=== PATIENT | female | born 1985 | race Caucasian/White ===

== ENCOUNTER 2017-12-10 07:17 | Emergency (ER) | payer MEDICAID ==
[~2017-12-10] VITALS: Ht 167.6 cm; Wt 95.3 kg
[2017-12-10 08:42] LABS: BASOPHILS % 0.4 % (0.0-2.0); EOSINOPHILS % 0.2 % (0.0-5.0); HEMATOCRIT. 37.6 % (36.0-48.0); HEMOGLOBIN. 12.5 g/dL (12.0-16.0); LYMPHOCYTES % 22.8 % (20.0-50.0); MEAN CORPUSCULAR HEMOGLOBIN 29.8 pg (28.0-32.0); MEAN CORPUSCULAR VOLUME 89.3 fL (81.0-99.0); MEAN PLATELET VOLUME 8.4 fl (7.4-10.4); MONOCYTES % 7.1 % (2.0-8.0); NEUTROPHILS % 69.5 % (40.0-76.0); PLATELET 249 x1000/uL (130-400); RED BLOOD CELL COUNT 4.21 mill/uL (4.2-5.4); RED CELL DISTRIBUTION WIDTH 15.1 % (11.6-14.6)
[2017-12-10 08:51] LABS: CHLORIDE 108 mEq/L (98-107)
[2017-12-10 08:53] LABS: ETHANOL BLOOD < 10 mg/dL
[2017-12-10 08:56] LABS: CLARITY URINE CLOUDY (CLEAR); COLOR URINE YELLOW (YELLOW); KETONES URINE 1+ (NEGATIVE); LEUKOCYTE ESTERASE URINE TRACE (NEGATIVE); NITRITE URINE NEGATIVE (NEGATIVE); OCCULT BLOOD URINE NEGATIVE (NEGATIVE); PROTEIN URINE TRACE (NEGATIVE); SPECIFIC GRAVITY URINE 1.031 (1.005-1.030)
[2017-12-10 09:08] LABS: *BARBITURATES SCREEN URINE NEGATIVE (NEGATIVE); *BENZODIAZEPINES SCREEN URINE NEGATIVE (NEGATIVE); *COCAINE SCREEN URINE NEGATIVE (NEGATIVE); METHADONE URINE SCREEN NEGATIVE (NEGATIVE); OPIATES URINE SCREEN NEGATIVE (NEGATIVE)
[2017-12-10 09:09] LABS: *AMPHETAMINES SCREEN URINE PRESUMTIVE POSITIVE (NEGATIVE); CANNABINOID URINE SCREEN NEGATIVE (NEGATIVE); PHENCYCLIDINE URINE SCREEN NEGATIVE (NEGATIVE)
[2017-12-10] MEDS ORDERED: OLANZAPINE 10MG TABLET PO SCH (15:15)
[2017-12-11] MEDS ORDERED: POTASSIUM CHLORIDE 20MEQ TABLET SR PO ONE (07:30)
[2017-12-11 11:04] VITALS: BP 110/60
== END 2017-12-11 11:05 | disposition home or self-care (01) ==
LOC: ER 07:17
DX: R44.0 Auditory hallucinations (principal); F32.9 Major depressive disorder, single episode, unspecified; R45.851 Suicidal ideations
CPT/HCPCS: 36415; 80048; 80305; 80307; 80329; 81003; 81025; 85025; 99284; G0482; J7030; Z7610

== ENCOUNTER 2019-10-21 15:58 | Emergency (ER) | payer MEDICAID ==
[~2019-10-21] VITALS: Ht 167.6 cm; Wt 79.0 kg
[2019-10-21] MEDS ORDERED: SODIUM CHLORIDE 0.9% 1,000 ML IV ONE (16:53)
[2019-10-21 17:04] LABS: CLARITY URINE CLEAR (CLEAR); COLOR URINE YELLOW (YELLOW); KETONES URINE NEGATIVE (NEGATIVE); LEUKOCYTE ESTERASE URINE TRACE (NEGATIVE); NITRITE URINE NEGATIVE (NEGATIVE); OCCULT BLOOD URINE NEGATIVE (NEGATIVE); PH URINE 6.5 (4.5-8.0); PROTEIN URINE NEGATIVE (NEGATIVE); SPECIFIC GRAVITY URINE 1.004 (1.005-1.030); UROBILINOGEN URINE 0.2 E.U./dL (0.2-1.0)
[2019-10-21 17:07] LABS: BASOPHILS % 0.3 % (0.0-2.0); EOSINOPHILS % 0.9 % (0.0-5.0); HEMATOCRIT. 40.5 % (36.0-48.0); HEMOGLOBIN. 13.8 g/dL (12.0-16.0); LYMPHOCYTES % 33.7 % (20.0-50.0); MEAN CORPUSCULAR VOLUME 90.9 fL (81.0-99.0); MONOCYTES % 7.2 % (2.0-8.0); NEUTROPHILS % 57.9 % (40.0-76.0); PLATELET 217 x1000/uL (130-400); RED BLOOD CELL COUNT 4.46 mill/uL (4.2-5.4); RED CELL DISTRIBUTION WIDTH 14.2 % (11.6-14.6)
[2019-10-21 17:08] LABS: CHLORIDE 103 mEq/L (98-107)
[2019-10-21 17:12] LABS: PARTIAL THROMBOPLASTIN TIME 26.4 sec (23.4-31.0); PROTHROMBIN TIME 10.1 sec (9.6-11.0)
[2019-10-21 19:12] VITALS: BP 110/52
== END 2019-10-21 19:19 | disposition home or self-care (01) ==
LOC: ER 15:58
DX: R55 Syncope and collapse (principal); R42 Dizziness and giddiness
CPT/HCPCS: 36415; 71045; 80053; 81003; 81025; 85025; 85610; 85730; 93005; 96360; 96361; 99285; J7030

== ENCOUNTER 2019-12-27 17:04 | Emergency (ER) | payer MEDICAID ==
[~2019-12-27] VITALS: Ht 165.1 cm; Wt 60.0 kg
[2019-12-27 17:21] VITALS: BP 131/80
[2019-12-27 19:39] LABS: BASOPHILS % 0.6 % (0.0-2.0); HEMATOCRIT. 38.3 % (36.0-48.0); HEMOGLOBIN. 12.9 g/dL (12.0-16.0); MEAN CORPUSCULAR VOLUME 91.9 fL (81.0-99.0); MEAN PLATELET VOLUME 9.3 fl (7.4-10.4); MONOCYTES % 4.7 % (2.0-8.0); NEUTROPHILS % 57.7 % (40.0-76.0); PLATELET 195 x1000/uL (130-400); RED BLOOD CELL COUNT 4.16 mill/uL (4.2-5.4); RED CELL DISTRIBUTION WIDTH 14.1 % (11.6-14.6)
[2019-12-27 19:51] LABS: PROTHROMBIN TIME 10.4 sec (9.6-11.0)
[2019-12-27 19:54] LABS: CHLORIDE 110 mEq/L (98-107)
== END 2019-12-27 21:35 | disposition home or self-care (01) ==
LOC: ER 17:04
DX: R55 Syncope and collapse (principal); Z98.890 Other specified postprocedural states
CPT/HCPCS: 36415; 71045; 80053; 84484; 85025; 93005; 99285

== ENCOUNTER 2021-02-27 01:43 | Emergency (ER) | payer MEDICAID ==
[~2021-02-27] VITALS: Ht 162.6 cm; Wt 91.0 kg
[2021-02-27 04:09] VITALS: BP 115/84
== END 2021-02-27 05:22 | disposition home or self-care (01) ==
LOC: ER 02:18
DX: R20.0 Anesthesia of skin (principal); R20.2 Paresthesia of skin; R07.9 Chest pain, unspecified; F17.210 Nicotine dependence, cigarettes, uncomplicated
CPT/HCPCS: 82962; 99283

== ENCOUNTER 2021-08-01 20:25 | Emergency (ER) | payer MEDICAID, OTHER ==
[~2021-08-01] VITALS: Ht 167.6 cm; Wt 68.0 kg
[2021-08-01] MEDS ORDERED: HALOPERIDOL LACTATE 5MG/ML VIAL IM ONE (21:15)
[2021-08-01] MEDS ORDERED: LORAZEPAM 2MG/ML CPJ IM ONE (21:15)
[2021-08-01 22:00] LABS: BASOPHILS % 0.3 % (0.0-2.0); EOSINOPHILS % 0.5 % (0.0-5.0); HEMOGLOBIN. 12.6 g/dL (12.0-16.0); LYMPHOCYTES % 22.3 % (20.0-50.0); MEAN CORPUSCULAR HEMOGLOBIN 30.3 pg (28.0-32.0); MEAN CORPUSCULAR VOLUME 89.3 fL (81.0-99.0); MEAN PLATELET VOLUME 8.7 fl (7.4-10.4); NEUTROPHILS % 67.9 % (40.0-76.0); PLATELET 215 x1000/uL (130-400); RED BLOOD CELL COUNT 4.14 mill/uL (4.2-5.4); RED CELL DISTRIBUTION WIDTH 13.8 % (11.6-14.6)
[2021-08-01 22:09] LABS: HCG SCREEN NEGATIVE
[2021-08-01 22:11] LABS: CHLORIDE 108 mEq/L (98-107)
[2021-08-01 22:15] LABS: ETHANOL BLOOD < 10 mg/dL
[2021-08-01 22:59] LABS: CLARITY URINE CLOUDY (CLEAR); COLOR URINE DARK YELLOW (YELLOW); KETONES URINE TRACE (NEGATIVE); LEUKOCYTE ESTERASE URINE NEGATIVE (NEGATIVE); NITRITE URINE NEGATIVE (NEGATIVE); OCCULT BLOOD URINE NEGATIVE (NEGATIVE); PROTEIN URINE 1+ (NEGATIVE); SPECIFIC GRAVITY URINE 1.038 (1.005-1.030); UROBILINOGEN URINE 0.2 E.U./dL (0.2-1.0)
[2021-08-01 23:20] LABS: *BARBITURATES SCREEN URINE NEGATIVE (NEGATIVE); *COCAINE SCREEN URINE NEGATIVE (NEGATIVE); METHADONE URINE SCREEN NEGATIVE (NEGATIVE); OPIATES URINE SCREEN NEGATIVE (NEGATIVE)
[2021-08-01 23:26] LABS: CANNABINOID URINE SCREEN NEGATIVE (NEGATIVE); PHENCYCLIDINE URINE SCREEN NEGATIVE (NEGATIVE)
[2021-08-01 23:36] LABS: *AMPHETAMINES SCREEN URINE PRESUMTIVE POSITIVE (NEGATIVE); *BENZODIAZEPINES SCREEN URINE PRESUMTIVE POSITIVE (NEGATIVE)
[2021-08-02 05:00] VITALS: BP 146/70
== END 2021-08-02 05:45 | disposition home or self-care (01) ==
LOC: ER 20:25
DX: F29 Unspecified psychosis not due to a substance or known physiological condition (principal); R45.1 Restlessness and agitation; R41.82 Altered mental status, unspecified; F15.10 Other stimulant abuse, uncomplicated
CPT/HCPCS: 36415; 80053; 80305; 80307; 80320; 80329; 81003; 84703; 85025; 96372; 99291; J1630; J2060; Z7610; G0480

== ENCOUNTER 2021-10-22 08:37 | Emergency (ER) | payer OTHER, MEDICAID ==
[~2021-10-22] VITALS: Ht 162.6 cm; Wt 114.0 kg
[2021-10-22 08:45] VITALS: BP 120/74
[2021-10-22] MEDS ORDERED: OLAN10TA3 MT (09:10)
== END 2021-10-22 09:19 | disposition home or self-care (01) ==
LOC: ER 08:37
DX: Z76.0 Encounter for issue of repeat prescription (principal); Z86.59 Personal history of other mental and behavioral disorders
CPT/HCPCS: 81025; 99282; 99283

== ENCOUNTER 2022-01-25 06:02 | Emergency (ER) | payer MEDICAID, OTHER ==
[~2022-01-25] VITALS: Ht 165.1 cm; Wt 82.0 kg
[~2022-01-25 06:02] MED LIST: OLAN10TA3 MT
[2022-01-25 07:54] VITALS: BP 131/78
== END 2022-01-25 07:57 | disposition left against medical advice (07) ==
LOC: ER 06:02
DX: F15.20 Other stimulant dependence, uncomplicated (principal); F20.9 Schizophrenia, unspecified
CPT/HCPCS: 99283

== ENCOUNTER 2022-06-23 16:11 | Emergency (ER) | payer MEDICAID, OTHER ==
[~2022-06-23] VITALS: Ht 162.6 cm; Wt 95.0 kg
[2022-06-23 17:20] LABS: BASOPHILS % 0.5 % (0.0-2.0); EOSINOPHILS % 0.3 % (0.0-5.0); HEMOGLOBIN. 12.3 g/dL (12.0-16.0); LYMPHOCYTES % 25.9 % (20.0-50.0); MEAN CORPUSCULAR HEMOGLOBIN 28.8 pg (28.0-32.0); MEAN CORPUSCULAR VOLUME 86.3 fL (81.0-99.0); MEAN PLATELET VOLUME 9.4 fl (7.4-10.4); MONOCYTES % 9.4 % (2.0-8.0); NEUTROPHILS % 63.9 % (40.0-76.0); PLATELET 210 x1000/uL (130-400); RED BLOOD CELL COUNT 4.29 mill/uL (4.2-5.4); RED CELL DISTRIBUTION WIDTH 14.5 % (11.6-14.6)
[2022-06-23 17:31] LABS: CHLORIDE 108 mEq/L (98-107)
[2022-06-23 17:40] LABS: ETHANOL BLOOD < 10 mg/dL
[2022-06-23 18:43] LABS: HCG SCREEN NEGATIVE
[2022-06-23 23:17] VITALS: BP 123/84
== END 2022-06-23 23:18 | disposition home or self-care (01) ==
LOC: ER 16:11
DX: T43.621A Poisoning by amphetamines, accidental (unintentional), initial encounter (principal); G92.8 Other toxic encephalopathy; F23 Brief psychotic disorder; Y92.018 Other place in single-family (private) house as the place of occurrence of the external cause
CPT/HCPCS: 36415; 80048; 80307; 80320; 80329; 84703; 85025; 99283; G0480

== ENCOUNTER 2022-07-02 23:24 | Emergency (ER) | payer OTHER ==
[~2022-07-02] VITALS: Ht 167.6 cm; Wt 90.0 kg
[2022-07-03] MEDS ORDERED: SODIUM CHLORIDE 0.9% 1,000 ML IV ONE (00:15)
[2022-07-03] MEDS ORDERED: LORAZEPAM 0.5MG TABLET PO ONE (01:00)
[2022-07-03 01:41] LABS: BASOPHILS % 0.3 % (0.0-2.0); EOSINOPHILS % 0.1 % (0.0-5.0); HEMATOCRIT. 34.8 % (36.0-48.0); HEMOGLOBIN. 11.7 g/dL (12.0-16.0); LYMPHOCYTES % 16.6 % (20.0-50.0); MEAN CORPUSCULAR HEMOGLOBIN 29.1 pg (28.0-32.0); MEAN CORPUSCULAR VOLUME 86.8 fL (81.0-99.0); MEAN PLATELET VOLUME 9.2 fl (7.4-10.4); MONOCYTES % 7.3 % (2.0-8.0); NEUTROPHILS % 75.7 % (40.0-76.0); PLATELET 215 x1000/uL (130-400); RED CELL DISTRIBUTION WIDTH 15.3 % (11.6-14.6)
[2022-07-03 01:45] LABS: CLARITY URINE CLOUDY (CLEAR); COLOR URINE YELLOW (YELLOW); KETONES URINE 1+ (NEGATIVE); LEUKOCYTE ESTERASE URINE 2+ (NEGATIVE); NITRITE URINE NEGATIVE (NEGATIVE); OCCULT BLOOD URINE NEGATIVE (NEGATIVE); PH URINE 5.5 (4.5-8.0); PROTEIN URINE 1+ (NEGATIVE)
[2022-07-03 01:55] LABS: CHLORIDE 109 mEq/L (98-107)
[2022-07-03 02:04] LABS: ETHANOL BLOOD < 10 mg/dL
[2022-07-03 02:06] LABS: *BARBITURATES SCREEN URINE NEGATIVE (NEGATIVE); *COCAINE SCREEN URINE NEGATIVE (NEGATIVE); CANNABINOID URINE SCREEN NEGATIVE (NEGATIVE); METHADONE URINE SCREEN NEGATIVE (NEGATIVE); OPIATES URINE SCREEN NEGATIVE (NEGATIVE); PHENCYCLIDINE URINE SCREEN NEGATIVE (NEGATIVE)
[2022-07-03 02:14] LABS: *AMPHETAMINES SCREEN URINE PRESUMTIVE POSITIVE (NEGATIVE); *BENZODIAZEPINES SCREEN URINE PRESUMTIVE POSITIVE (NEGATIVE)
[2022-07-03 05:34] VITALS: BP 120/70
== END 2022-07-03 07:27 | disposition home or self-care (01) ==
LOC: ER 23:24
DX: F19.10 Other psychoactive substance abuse, uncomplicated (principal); F41.9 Anxiety disorder, unspecified; F20.9 Schizophrenia, unspecified
CPT/HCPCS: 36415; 80053; 80305; 80307; 80320; 80329; 81003; 81025; 85025; 96360; 96361; 99283; J7030; G0480

== ENCOUNTER 2022-07-03 14:29 | Emergency (ER) | payer OTHER ==
[~2022-07-03] VITALS: Ht 162.6 cm; Wt 100.0 kg
[2022-07-03 14:31] VITALS: BP 138/75
[2022-07-03 15:20] LABS: BASOPHILS % 0.3 % (0.0-2.0); EOSINOPHILS % 0.2 % (0.0-5.0); HEMOGLOBIN. 10.7 g/dL (12.0-16.0); LYMPHOCYTES % 25.3 % (20.0-50.0); MEAN CORPUSCULAR HEMOGLOBIN 28.7 pg (28.0-32.0); MEAN CORPUSCULAR VOLUME 85.9 fL (81.0-99.0); MEAN PLATELET VOLUME 8.9 fl (7.4-10.4); MONOCYTES % 7.5 % (2.0-8.0); NEUTROPHILS % 66.7 % (40.0-76.0); PLATELET 199 x1000/uL (130-400); RED BLOOD CELL COUNT 3.72 mill/uL (4.2-5.4); RED CELL DISTRIBUTION WIDTH 15.1 % (11.6-14.6)
[2022-07-03 15:31] LABS: HCG SCREEN NEGATIVE
[2022-07-03 15:32] LABS: CHLORIDE 110 mEq/L (98-107)
[2022-07-03 15:36] LABS: ETHANOL BLOOD < 10 mg/dL
== END 2022-07-03 19:19 | disposition home or self-care (01) ==
LOC: ER 14:29
DX: F15.10 Other stimulant abuse, uncomplicated (principal); E11.9 Type 2 diabetes mellitus without complications; F41.9 Anxiety disorder, unspecified; F20.9 Schizophrenia, unspecified
CPT/HCPCS: 36415; 80048; 80307; 80320; 80329; 84703; 85025; 99283; Z7610; G0480

== ENCOUNTER 2023-02-04 14:12 | Emergency (ER) | payer OTHER ==
[~2023-02-04] VITALS: Ht 162.6 cm; Wt 109.0 kg
[2023-02-04 14:32] VITALS: BP 106/68; PULSE 83; RESP 20; TEMP 98.1; O2SAT 99
[2023-02-04] MEDS ORDERED: OLAN10TA3 MT ×3 (15:47→16:45)
== END 2023-02-04 16:27 | disposition home or self-care (01) ==
LOC: ER 14:12
DX: R53.1 Weakness (principal); E11.9 Type 2 diabetes mellitus without complications; Z76.0 Encounter for issue of repeat prescription; F15.90 Other stimulant use, unspecified, uncomplicated
CPT/HCPCS: 99283

== ENCOUNTER 2023-02-18 16:34 | Emergency (ER) | payer OTHER ==
[~2023-02-18] VITALS: Ht 167.6 cm; Wt 75.0 kg
[2023-02-18 16:40] VITALS: O2SAT 98
[2023-02-18] MEDS ORDERED: HALOPERIDOL LACTATE 5MG/ML VIAL IM ONE (16:45)
[2023-02-18] MEDS ORDERED: DIPHENHYDRAMINE 50MG/ML VIAL IM PRN (16:45)
[2023-02-18] MEDS ORDERED: LORAZEPAM 2MG/ML CPJ IM PRN (16:45)
[2023-02-19 04:58] VITALS: BP 135/83; PULSE 79; RESP 20; TEMP 98
== END 2023-02-19 05:02 | disposition home or self-care (01) ==
LOC: ER 16:34
DX: F15.10 Other stimulant abuse, uncomplicated (principal); E11.9 Type 2 diabetes mellitus without complications
CPT/HCPCS: 99284; 96372; J1200; J1630; J2060

== ENCOUNTER 2023-02-20 20:32 | Emergency (ER) | payer OTHER ==
[~2023-02-20] VITALS: Ht 167.6 cm; Wt 99.0 kg
[2023-02-20 20:43] VITALS: BP 122/66; PULSE 98; RESP 16; TEMP 98.5; O2SAT 98
[2023-02-20 21:44] LABS: BASOPHILS % 0.2 % (0.0-2.0); EOSINOPHILS % 0.2 % (0.0-5.0); HEMATOCRIT. 35.6 % (36.0-48.0); HEMOGLOBIN. 11.8 g/dL (12.0-16.0); LYMPHOCYTES % 23.2 % (20.0-50.0); MEAN CORPUSCULAR HEMOGLOBIN 29.8 pg (28.0-32.0); MEAN CORPUSCULAR VOLUME 90.2 fL (81.0-99.0); MEAN PLATELET VOLUME 8.5 fl (7.4-10.4); NEUTROPHILS % 70.4 % (40.0-76.0); PLATELET 237 x1000/uL (130-400); RED BLOOD CELL COUNT 3.95 mill/uL (4.2-5.4); RED CELL DISTRIBUTION WIDTH 14.5 % (11.6-14.6); WHITE BLOOD COUNT 9.9 x1000/uL (4.5-11.0)
[2023-02-20 21:46] LABS: CHLORIDE 107 mEq/L (98-107); INDEX HEMOLYSI 1 (1-3); INDEX ICTERIC 1 (1-4); INDEX LIPEMIC 1 (1-3); POTASSIUM 3.5 mEq/L (3.5-5.1); SODIUM 139 mEq/L (136-145)
[2023-02-20 21:54] LABS: ALANINE AMINOTRANSFERASE 17 IU/L (13-61); ALBUMIN 3.4 g/dL (3.4-5.0); ASPARTATE AMINOTRANSFERASE 13 IU/L (15-37); BILIRUBIN TOTAL 0.3 mg/dL (0.1-1.0); CALCIUM 8.4 mg/dL (8.5-10.1); CARBON DIOXIDE 28 mEq/L (21-32); CREATININE 0.7 mg/dL (0.6-1.3); ETHANOL BLOOD < 10 mg/dL (<10); GLUCOSE 100 mg/dL (70-105); PROTEIN TOTAL 7.2 g/dL (6.0-8.3); UREA NITROGEN BLOOD 9 mg/dL (7-21)
== END 2023-02-20 23:00 | disposition home or self-care (01) ==
LOC: ER 20:32
DX: T43.621A Poisoning by amphetamines, accidental (unintentional), initial encounter (principal); F12.10 Cannabis abuse, uncomplicated; Y92.9 Unspecified place or not applicable
CPT/HCPCS: 36415; 80053; 80320; 85025; 99283; G0480

== ENCOUNTER 2023-02-25 12:14 | Emergency (ER) | payer OTHER ==
[~2023-02-25] VITALS: Ht 162.6 cm; Wt 91.0 kg
[2023-02-25 12:19] VITALS: O2SAT 98
[2023-02-25] MEDS ORDERED: LORAZEPAM 2MG/ML CPJ IM STA (12:20)
[2023-02-25 12:48] LABS: BASOPHILS % 0.5 % (0.0-2.0); EOSINOPHILS % 0.5 % (0.0-5.0); HEMATOCRIT. 36.8 % (36.0-48.0); HEMOGLOBIN. 12.2 g/dL (12.0-16.0); LYMPHOCYTES % 31.3 % (20.0-50.0); MEAN CORPUSCULAR HEMOGLOBIN 29.6 pg (28.0-32.0); MEAN CORPUSCULAR HGB CONC 33.1 g/dL (31.0-37.0); MEAN CORPUSCULAR VOLUME 89.3 fL (81.0-99.0); MEAN PLATELET VOLUME 8.5 fl (7.4-10.4); NEUTROPHILS % 58.7 % (40.0-76.0); PLATELET 241 x1000/uL (130-400); RED BLOOD CELL COUNT 4.12 mill/uL (4.2-5.4); RED CELL DISTRIBUTION WIDTH 14.6 % (11.6-14.6); WHITE BLOOD COUNT 7.9 x1000/uL (4.5-11.0)
[2023-02-25 13:04] LABS: CHLORIDE 104 mEq/L (98-107); INDEX HEMOLYSI 1 (1-3); INDEX ICTERIC 1 (1-4); INDEX LIPEMIC 1 (1-3); POTASSIUM 3.1 mEq/L (3.5-5.1); SODIUM 137 mEq/L (136-145)
[2023-02-25 13:09] LABS: HCG SCREEN NEGATIVE
[2023-02-25] MEDS ORDERED: HALOPERIDOL LACTATE 5MG/ML VIAL IM ONE (13:15)
[2023-02-25 13:21] LABS: ACETAMINOPHEN <2 ug/mL ug/mL (10-30); ALANINE AMINOTRANSFERASE 20 IU/L (13-61); ALBUMIN 3.9 g/dL (3.4-5.0); ASPARTATE AMINOTRANSFERASE 18 IU/L (15-37); BILIRUBIN TOTAL 0.5 mg/dL (0.1-1.0); CALCIUM 8.8 mg/dL (8.5-10.1); CARBON DIOXIDE 23 mEq/L (21-32); CREATINE KINASE 263 IU/L (26-192); CREATININE 1.1 mg/dL (0.6-1.3); ETHANOL BLOOD < 10 mg/dL (<10); GLUCOSE 86 mg/dL (70-105); PROTEIN TOTAL 8.1 g/dL (6.0-8.3); UREA NITROGEN BLOOD 16 mg/dL (7-21)
[2023-02-25] MEDS ORDERED: POTASSIUM CHLORIDE 20MEQ TABLET SR PO ONE (15:15)
[2023-02-25 15:37] LABS: CLARITY URINE CLOUDY (CLEAR); COLOR URINE DARK YELLOW (YELLOW); GLUCOSE URINE NEGATIVE (NEGATIVE); KETONES URINE 1+ (NEGATIVE); LEUKOCYTE ESTERASE URINE 2+ (NEGATIVE); NITRITE URINE NEGATIVE (NEGATIVE); OCCULT BLOOD URINE NEGATIVE (NEGATIVE); PH URINE 5.5 (4.5-8.0); PROTEIN URINE 1+ (NEGATIVE); SPECIFIC GRAVITY URINE 1.031 (1.005-1.030)
[2023-02-25 16:03] LABS: BACTERIA URINE 1+; RBC URINE 0-2 /hpf (0-2); SQUAMOUS EPITHELIAL CELL URINE 1+ /lpf (RARE/1+)
[2023-02-25 16:04] LABS: YEAST URINE 1+
[2023-02-25 17:03] LABS: *BARBITURATES SCREEN URINE NEGATIVE (NEGATIVE); *BENZODIAZEPINES SCREEN URINE NEGATIVE (NEGATIVE); *COCAINE SCREEN URINE NEGATIVE (NEGATIVE); CANNABINOID URINE SCREEN NEGATIVE (NEGATIVE); METHADONE URINE SCREEN NEGATIVE (NEGATIVE); OPIATES URINE SCREEN NEGATIVE (NEGATIVE); PHENCYCLIDINE URINE SCREEN NEGATIVE (NEGATIVE)
[2023-02-25 17:21] LABS: *AMPHETAMINES SCREEN URINE PRESUMTIVE POSITIVE (NEGATIVE); ECSTASY MDMA SCREEN URINE CONF.TEST INDICATED (NEGATIVE)
[2023-02-25] MEDS ORDERED: HALOPERIDOL LACTATE 5MG/ML VIAL IM NR (19:30)
[2023-02-25] MEDS ORDERED: FLUCONAZOLE 150MG TABLET PO ONE (19:45)
[2023-02-26 10:29] VITALS: BP 91/44; PULSE 83; RESP 14; TEMP 97.9
== END 2023-02-26 12:43 | disposition home or self-care (01) ==
LOC: ER 12:26
DX: R41.82 Altered mental status, unspecified (principal); B37.9 Candidiasis, unspecified; F12.90 Cannabis use, unspecified, uncomplicated; F15.90 Other stimulant use, unspecified, uncomplicated; R07.9 Chest pain, unspecified; Y33.XXXA Other specified events, undetermined intent, initial encounter; Y93.89 Activity, other specified; Y92.89 Other specified places as the place of occurrence of the external cause; Y99.8 Other external cause status; F10.90 Alcohol use, unspecified, uncomplicated; Y90.0 Blood alcohol level of less than 20 mg/100 ml
CPT/HCPCS: 80053; 80305; 81003; 80307; 80329; 80320; 82550; 84703; 84443; 85025; 36415; 70450; 70486; 93005; 96372; 99291; 87426; J1630; J2060; C9803; Z7610 ×6; G0480

== ENCOUNTER 2023-04-10 19:47 | Emergency (ER) | payer OTHER ==
[~2023-04-10] VITALS: Ht 162.6 cm; Wt 87.0 kg
[2023-04-10 19:49] VITALS: BP 146/80; PULSE 120; RESP 22; TEMP 98.8; O2SAT 97
== END 2023-04-10 23:00 | disposition left against medical advice (07) ==
LOC: ER 19:47
DX: Z53.21 Procedure and treatment not carried out due to patient leaving prior to being seen by health care provider (principal)
CPT/HCPCS: 99281

== ENCOUNTER 2023-06-09 21:05 | Emergency (ER) | payer OTHER ==
[~2023-06-09] VITALS: Ht 170.2 cm; Wt 73.0 kg
[2023-06-09 21:15] VITALS: BP 108/82; PULSE 91; RESP 18; TEMP 97.9; O2SAT 99
[2023-06-09] MEDS ORDERED: OLAN10TA72 MT (21:30)
== END 2023-06-09 21:56 | disposition home or self-care (01) ==
LOC: ER 21:14
DX: F20.9 Schizophrenia, unspecified (principal); Z59.00 Homelessness unspecified
CPT/HCPCS: 99283

== ENCOUNTER 2024-01-10 19:47 | Emergency (ER) | payer OTHER ==
[~2024-01-10] VITALS: Ht 162.6 cm; Wt 90.0 kg
[~2024-01-10 19:47] MED LIST changes: +OLAN10TA72 MT
[2024-01-10 19:54] VITALS: BP 118/88; PULSE 120; RESP 26; TEMP 98.4; O2SAT 99
[2024-01-10] MEDS: KETOROLAC 30MG/ML VIAL IM NR (20:15)
[2024-01-10] MEDS: LORAZEPAM 2MG/ML INJ IM NR (20:15)
[2024-01-10] MEDS ORDERED: LORAZEPAM 2MG/ML INJ IM ONE (20:15)
[2024-01-10] MEDS ORDERED: KETOROLAC 30MG/ML VIAL IM ONE (20:15)
[2024-01-10] MEDS: DIPHENHYDRAMINE 50MG/ML VIAL IM NR (20:15)
[2024-01-10] MEDS ORDERED: DIPHENHYDRAMINE 50MG/ML VIAL IM ONE (20:15)
[2024-01-10] MEDS: LORAZEPAM 1MG TABLET PO ONE (22:30)
[2024-01-10] MEDS: METOCLOPRAMIDE HCL 10MG TABLET PO ONE (22:48)
[2024-01-10] MEDS: DIPHENHYDRAMINE 25MG CAPSULE PO ONE (22:48)
[2024-01-10] MEDS: ACETAMINOPHEN 325MG TABLET PO ONE (22:48)
== END 2024-01-10 23:00 | disposition home or self-care (01) ==
LOC: ER 19:47
DX: F15.10 Other stimulant abuse, uncomplicated (principal); G43.909 Migraine, unspecified, not intractable, without status migrainosus; F20.9 Schizophrenia, unspecified
CPT/HCPCS: 99284; 70450; Q0163; J8597; J1200; J1885; J2060

== ENCOUNTER 2024-01-15 13:57 | Emergency (ER) | payer OTHER ==
[~2024-01-15] VITALS: Ht 165.1 cm; Wt 88.0 kg
[2024-01-15 14:03] VITALS: BP 109/60; PULSE 105; RESP 16; TEMP 98.5; O2SAT 98
== END 2024-01-15 15:16 ==
LOC: ER 13:57
DX: F15.10 Other stimulant abuse, uncomplicated (principal); Z86.59 Personal history of other mental and behavioral disorders
CPT/HCPCS: 99283

== ENCOUNTER 2024-08-10 22:46 | Emergency (ER) | payer OTHER ==
[~2024-08-10] VITALS: Ht 167.6 cm; Wt 100.0 kg
[2024-08-10 22:54] VITALS: O2SAT 99
[2024-08-10 23:29] LABS: BASOPHILS % 0.6 % (0.0-2.0); EOSINOPHILS % 0.2 % (0.0-5.0); HEMATOCRIT. 37.9 % (36.0-48.0); HEMOGLOBIN. 12.5 g/dL (12.0-16.0); LYMPHOCYTES % 17.7 % (20.0-50.0); MEAN CORPUSCULAR HEMOGLOBIN 30.2 pg (28.0-32.0); MEAN CORPUSCULAR VOLUME 91.6 fL (81.0-99.0); MEAN PLATELET VOLUME 8.2 fl (7.4-10.4); MONOCYTES % 7.5 % (2.0-8.0); PLATELET 286 x1000/uL (130-400); RED BLOOD CELL COUNT 4.14 mill/uL (4.2-5.4); RED CELL DISTRIBUTION WIDTH 14.7 % (11.6-14.6)
[2024-08-10 23:37] LABS: CHLORIDE 108 mEq/L (98-107); POTASSIUM 3.6 mEq/L (3.5-5.1); SODIUM 143 mEq/L (136-145)
[2024-08-10 23:38] LABS: CALCIUM 9.9 mg/dL (8.7-10.4); CARBON DIOXIDE 25 mEq/L (21-32)
[2024-08-10 23:42] LABS: HCG SCREEN NEGATIVE; UREA NITROGEN BLOOD 24 mg/dL (9-23)
[2024-08-10 23:43] LABS: CREATININE 0.9 mg/dL (0.6-1.0); GLUCOSE 90 mg/dL (70-105)
[2024-08-10 23:44] LABS: ETHANOL BLOOD < 10 mg/dL (<10)
[2024-08-10 23:45] LABS: ACETAMINOPHEN < 2 ug/mL (10-30); ALANINE AMINOTRANSFERASE 22 IU/L (10-49); ALBUMIN 4.6 g/dL (3.2-4.8); ASPARTATE AMINOTRANSFERASE 36 IU/L (<34); BILIRUBIN DIRECT 0.3 mg/dL (<=3.0); BILIRUBIN TOTAL 0.9 mg/dL (0.1-1.0); PROTEIN TOTAL 8.4 g/dL (6.0-8.3)
[2024-08-11 01:46] LABS: CLARITY URINE CLEAR (CLEAR); COLOR URINE YELLOW (YELLOW); GLUCOSE URINE NEGATIVE (NEGATIVE); KETONES URINE 3+ (NEGATIVE); LEUKOCYTE ESTERASE URINE NEGATIVE (NEGATIVE); NITRITE URINE NEGATIVE (NEGATIVE); OCCULT BLOOD URINE 3+ (NEGATIVE); PH URINE 5.5 (4.5-8.0); PROTEIN URINE 1+ (NEGATIVE); SPECIFIC GRAVITY URINE 1.038 (1.005-1.030)
[2024-08-11 01:57] LABS: *AMPHETAMINES SCREEN URINE PRESUMPTIVE POSITIVE (NEGATIVE); *BARBITURATES SCREEN URINE NEGATIVE (NEGATIVE); *BENZODIAZEPINES SCREEN URINE NEGATIVE (NEGATIVE); *COCAINE SCREEN URINE NEGATIVE (NEGATIVE); CANNABINOID URINE SCREEN NEGATIVE (NEGATIVE); ECSTASY MDMA SCREEN URINE CONF.TEST INDICATED (NEGATIVE); METHADONE URINE SCREEN NEGATIVE (NEGATIVE); OPIATES URINE SCREEN NEGATIVE (NEGATIVE); PHENCYCLIDINE URINE SCREEN NEGATIVE (NEGATIVE)
[2024-08-11 04:17] LABS: RBC URINE 15-25 /hpf (0-2); WBC URINE NONE SEEN /hpf (0-2)
[2024-08-11 04:18] LABS: BACTERIA URINE TRACE; SQUAMOUS EPITHELIAL CELL URINE 1+ /lpf (RARE/1+)
[2024-08-11 08:38] VITALS: TEMP 37.1
[2024-08-11 12:34] VITALS: BP 105/53; PULSE 72; RESP 16; O2SAT 100
== END 2024-08-11 12:55 | disposition home or self-care (01) ==
LOC: ER 22:46
DX: R45.851 Suicidal ideations (principal); F15.10 Other stimulant abuse, uncomplicated; Z86.59 Personal history of other mental and behavioral disorders
CPT/HCPCS: 36415; 80048; 80076; 80305; 80307; 80320; 80329; 81003; 84703; 85025; 99285; G0480

== ENCOUNTER 2024-08-11 18:12 | Emergency (ER) | payer OTHER ==
[~2024-08-11] VITALS: Ht 165.1 cm; Wt 75.0 kg
[2024-08-11] MEDS ORDERED: LORAZEPAM 2MG/ML INJ IM ONE (18:30)
[2024-08-11] MEDS: DIPHENHYDRAMINE 50MG/ML VIAL IM STA (18:55)
[2024-08-11] MEDS: LORAZEPAM 2MG/ML UD SYRINGE IM SCH (18:56)
[2024-08-11] MEDS: HALOPERIDOL LACTATE 5MG/ML VIAL IM STA (18:56)
[2024-08-11 19:45] VITALS: O2SAT 99
[2024-08-11 20:09] LABS: BASOPHILS % 0.4 % (0.0-2.0); EOSINOPHILS % 0.1 % (0.0-5.0); HEMATOCRIT. 36.6 % (36.0-48.0); HEMOGLOBIN. 12.3 g/dL (12.0-16.0); MEAN CORPUSCULAR HEMOGLOBIN 30.4 pg (28.0-32.0); MEAN CORPUSCULAR HGB CONC 33.6 g/dL (31.0-37.0); MEAN CORPUSCULAR VOLUME 90.4 fL (81.0-99.0); MEAN PLATELET VOLUME 8.4 fl (7.4-10.4); MONOCYTES % 6.1 % (2.0-8.0); NEUTROPHILS % 79.4 % (40.0-76.0); PLATELET 254 x1000/uL (130-400); RED BLOOD CELL COUNT 4.05 mill/uL (4.2-5.4); RED CELL DISTRIBUTION WIDTH 14.8 % (11.6-14.6)
[2024-08-11 20:10] LABS: CLARITY URINE CLOUDY (CLEAR); GLUCOSE URINE NEGATIVE (NEGATIVE); KETONES URINE 1+ (NEGATIVE); LEUKOCYTE ESTERASE URINE 1+ (NEGATIVE); NITRITE URINE NEGATIVE (NEGATIVE); OCCULT BLOOD URINE 2+ (NEGATIVE); PROTEIN URINE 2+ (NEGATIVE); SPECIFIC GRAVITY URINE 1.029 (1.005-1.030)
[2024-08-11 20:17] LABS: CHLORIDE 105 mEq/L (98-107); POTASSIUM 3.2 mEq/L (3.5-5.1); SODIUM 139 mEq/L (136-145)
[2024-08-11 20:18] LABS: CARBON DIOXIDE 21 mEq/L (21-32)
[2024-08-11 20:19] LABS: CALCIUM 9.9 mg/dL (8.7-10.4)
[2024-08-11 20:23] LABS: GLUCOSE 91 mg/dL (70-105); UREA NITROGEN BLOOD 29 mg/dL (9-23)
[2024-08-11 20:24] LABS: ETHANOL BLOOD < 10 mg/dL (<10)
[2024-08-11 20:25] LABS: ACETAMINOPHEN < 2 ug/mL (10-30)
[2024-08-11 20:27] LABS: COLOR URINE YELLOW (YELLOW)
[2024-08-11 20:34] LABS: CREATININE 1.4 mg/dL (0.6-1.0)
[2024-08-11 20:34] LABS: RBC URINE NONE SEEN /hpf (0-2)
[2024-08-11 20:35] LABS: BACTERIA URINE TRACE; HYALINE CASTS URINE 0-5 /lpf; SQUAMOUS EPITHELIAL CELL URINE 1+ /lpf (RARE/1+)
[2024-08-11 20:36] LABS: COARSE GRANULAR CASTS URINE 0-5 /lpf; MUCUS URINE TRACE /lpf (< = 2+); WHITE BLOOD CELL CASTS URINE 0-5 /lpf
[2024-08-11 20:39] LABS: *AMPHETAMINES SCREEN URINE PRESUMPTIVE POSITIVE (NEGATIVE); *BARBITURATES SCREEN URINE NEGATIVE (NEGATIVE); *BENZODIAZEPINES SCREEN URINE NEGATIVE (NEGATIVE); *COCAINE SCREEN URINE NEGATIVE (NEGATIVE)
[2024-08-11 20:40] LABS: CANNABINOID URINE SCREEN NEGATIVE (NEGATIVE); ECSTASY MDMA SCREEN URINE CONF.TEST INDICATED (NEGATIVE); METHADONE URINE SCREEN NEGATIVE (NEGATIVE); OPIATES URINE SCREEN NEGATIVE (NEGATIVE); PHENCYCLIDINE URINE SCREEN NEGATIVE (NEGATIVE)
[2024-08-11] MEDS: LORAZEPAM 1MG TABLET PO ONE (21:34)
[2024-08-12 13:25] LABS: HCG SCREEN NEGATIVE
[2024-08-12 15:14] VITALS: BP 97/54; PULSE 78; RESP 16; TEMP 36.7; O2SAT 100
[2024-08-12] MEDS ORDERED: OLANZAPINE 5MG TABLET PO SCH (21:00)
== END 2024-08-12 17:24 ==
LOC: ER 18:12
DX: R45.851 Suicidal ideations (principal); F15.10 Other stimulant abuse, uncomplicated; Z20.822 Contact with and (suspected) exposure to COVID-19; Z86.59 Personal history of other mental and behavioral disorders
CPT/HCPCS: 80305; 80048; 81003; 80307; 80329; 80320; 85025; 36415; 96372; 99291; 87426; 84703; J1200; J1630; J2060; Z7610 ×3; G0480

== ENCOUNTER 2024-08-21 18:52 | Emergency (ER) | payer OTHER ==
[~2024-08-21] VITALS: Ht 165.1 cm; Wt 91.0 kg
[2024-08-21 19:05] VITALS: O2SAT 98
[2024-08-21] MEDS: OLANZAPINE 10 MG/VIAL IM ONE ×2 (20:01→20:53)
[2024-08-21] MEDS: DIPHENHYDRAMINE 50MG/ML VIAL IM ONE (20:01)
[2024-08-21 21:46] LABS: BASOPHILS % 0.7 % (0.0-2.0); EOSINOPHILS % 0.2 % (0.0-5.0); MEAN CORPUSCULAR HEMOGLOBIN 30.5 pg (28.0-32.0); MEAN CORPUSCULAR HGB CONC 33.4 g/dL (31.0-37.0); MEAN CORPUSCULAR VOLUME 91.3 fL (81.0-99.0); MEAN PLATELET VOLUME 8.6 fl (7.4-10.4); NEUTROPHILS % 72.1 % (40.0-76.0); PLATELET 215 x1000/uL (130-400); RED BLOOD CELL COUNT 3.94 mill/uL (4.2-5.4); RED CELL DISTRIBUTION WIDTH 14.5 % (11.6-14.6)
[2024-08-21 21:54] LABS: CARBON DIOXIDE 22 mEq/L (21-32); CHLORIDE 107 mEq/L (98-107); POTASSIUM 3.4 mEq/L (3.5-5.1); SODIUM 139 mEq/L (136-145)
[2024-08-21 21:55] LABS: CALCIUM 8.7 mg/dL (8.7-10.4)
[2024-08-21 21:58] LABS: HCG SCREEN NEGATIVE
[2024-08-21 21:59] LABS: CREATININE 1.1 mg/dL (0.6-1.0)
[2024-08-21 22:00] LABS: ETHANOL BLOOD < 10 mg/dL (<10); GLUCOSE 102 mg/dL (70-105); UREA NITROGEN BLOOD 18 mg/dL (9-23)
[2024-08-21 22:01] LABS: ACETAMINOPHEN < 2 ug/mL (10-30); ALANINE AMINOTRANSFERASE 32 IU/L (10-49); ALBUMIN 4.1 g/dL (3.2-4.8); ASPARTATE AMINOTRANSFERASE 73 IU/L (<34)
[2024-08-21 22:02] LABS: BILIRUBIN DIRECT 0.2 mg/dL (<=3.0); BILIRUBIN TOTAL 0.6 mg/dL (0.1-1.0); PROTEIN TOTAL 7.7 g/dL (6.0-8.3)
[2024-08-22] MEDS: SODIUM CHLORIDE 0.9% 1,000 ML IV ONE (00:54)
[2024-08-22] MEDS ORDERED: LORAZEPAM 2MG/ML INJ IM ONE (10:30)
[2024-08-22] MEDS: LORAZEPAM 2MG/ML UD SYRINGE IM NR (10:43)
[2024-08-22] MEDS: OLANZAPINE 10 MG/VIAL IM ONE (10:44)
[2024-08-22 17:46] LABS: CLARITY URINE CLOUDY (CLEAR); COLOR URINE DARK YELLOW (YELLOW); GLUCOSE URINE NEGATIVE (NEGATIVE); KETONES URINE TRACE (NEGATIVE); LEUKOCYTE ESTERASE URINE NEGATIVE (NEGATIVE); NITRITE URINE NEGATIVE (NEGATIVE); OCCULT BLOOD URINE NEGATIVE (NEGATIVE); PH URINE 5.5 (4.5-8.0); PROTEIN URINE TRACE (NEGATIVE); SPECIFIC GRAVITY URINE 1.039 (1.005-1.030)
[2024-08-22 18:02] LABS: BACTERIA URINE NONE SEEN; RBC URINE NONE SEEN /hpf (0-2); SQUAMOUS EPITHELIAL CELL URINE FEW /lpf (RARE/1+); WBC URINE NONE SEEN /hpf (0-2)
[2024-08-22 18:06] LABS: *AMPHETAMINES SCREEN URINE PRESUMPTIVE POSITIVE (NEGATIVE); *BARBITURATES SCREEN URINE NEGATIVE (NEGATIVE); *BENZODIAZEPINES SCREEN URINE NEGATIVE (NEGATIVE); *COCAINE SCREEN URINE NEGATIVE (NEGATIVE); CANNABINOID URINE SCREEN NEGATIVE (NEGATIVE); ECSTASY MDMA SCREEN URINE CONF.TEST INDICATED (NEGATIVE); METHADONE URINE SCREEN NEGATIVE (NEGATIVE); OPIATES URINE SCREEN NEGATIVE (NEGATIVE); PHENCYCLIDINE URINE SCREEN NEGATIVE (NEGATIVE)
[2024-08-22] MEDS: OLANZAPINE 5MG TABLET ODT PO SCH (21:18)
[2024-08-22 21:22] VITALS: BP 104/52; PULSE 75; RESP 20; TEMP 36.2; O2SAT 96
== END 2024-08-22 21:37 ==
LOC: ER 18:52
DX: R46.1 Bizarre personal appearance (principal); R45.1 Restlessness and agitation; R00.0 Tachycardia, unspecified; Z20.822 Contact with and (suspected) exposure to COVID-19; Z59.00 Homelessness unspecified; Z79.899 Other long term (current) drug therapy
CPT/HCPCS: 80076; 80048; 80307; 80329; 80320; 84703; 85025; 36415; 93005; 96372 ×2; 99285; 87426; 80305; 81003; J3490 ×2; J1200; J7030; Z7610; J2060; G0480

== ENCOUNTER 2024-08-28 03:26 | Emergency (ER) | payer OTHER ==
[~2024-08-28] VITALS: Ht 162.6 cm; Wt 78.0 kg
[2024-08-28 03:31] VITALS: O2SAT 98
[2024-08-28] MEDS: SODIUM CHLORIDE 0.9% 1,000 ML IV ONE (05:30)
[2024-08-28] MEDS ORDERED: DIAZEPAM 5 MG/ML 2ML SYR IV ONE (05:30)
[2024-08-28 05:49] LABS: HEMATOCRIT. 38.1 % (36.0-48.0); MEAN CORPUSCULAR HEMOGLOBIN 30.7 pg (28.0-32.0); MEAN CORPUSCULAR HGB CONC 34.1 g/dL (31.0-37.0); MEAN CORPUSCULAR VOLUME 89.8 fL (81.0-99.0); MEAN PLATELET VOLUME 8.6 fl (7.4-10.4); PLATELET 263 x1000/uL (130-400); RED BLOOD CELL COUNT 4.24 mill/uL (4.2-5.4); RED CELL DISTRIBUTION WIDTH 14.4 % (11.6-14.6); WHITE BLOOD COUNT 7.5 x1000/uL (4.5-11.0)
[2024-08-28 05:52] LABS: DIFFERENTIAL COMMENT 1
[2024-08-28 06:02] LABS: CHLORIDE 104 mEq/L (98-107); POTASSIUM 3.3 mEq/L (3.5-5.1); SODIUM 138 mEq/L (136-145)
[2024-08-28 06:03] LABS: CALCIUM 9.3 mg/dL (8.7-10.4); CARBON DIOXIDE 24 mEq/L (21-32)
[2024-08-28 06:06] LABS: HCG SCREEN NEGATIVE
[2024-08-28 06:08] LABS: ETHANOL BLOOD < 10 mg/dL (<10); GLUCOSE 97 mg/dL (70-105); UREA NITROGEN BLOOD 13 mg/dL (9-23)
[2024-08-28] MEDS: DIAZEPAM 5 MG/ML 2ML SYR IM ONE ×2 (06:10→07:43)
[2024-08-28 06:15] LABS: TROPONIN I HIGH SENSITIVITY < 4 ng/L (3.0-34)
[2024-08-28] MEDS: HALOPERIDOL LACTATE 5MG/ML VIAL IM ONE (07:14)
[2024-08-28] MEDS: POTASSIUM CHLORIDE 20MEQ/PACKET PO ONE (07:14)
[2024-08-28 09:27] LABS: PLATELET ESTIMATE NORMAL
[2024-08-28 10:00] VITALS: BP 112/70; PULSE 84; RESP 21; TEMP 36.9; O2SAT 100
== END 2024-08-28 13:12 | disposition home or self-care (01) ==
LOC: ER 03:26
DX: F15.10 Other stimulant abuse, uncomplicated (principal); Z87.891 Personal history of nicotine dependence; T44.905A Adverse effect of unspecified drugs primarily affecting the autonomic nervous system, initial encounter; Z79.899 Other long term (current) drug therapy; Y92.89 Other specified places as the place of occurrence of the external cause
CPT/HCPCS: 80048; 80307; 80329; 80320; 84703; 85025; 84484; 36415; 93005; 96360; 96361; 96372; 99284; J3360; J1630; J7030; Z7610 ×2; G0480

== ENCOUNTER 2024-08-28 21:47 | Emergency (ER) | payer OTHER ==
[~2024-08-28] VITALS: Ht 165.1 cm; Wt 77.0 kg
[2024-08-28 22:03] VITALS: O2SAT 97
[2024-08-29 00:15] LABS: BASOPHILS % 0.4 % (0.0-2.0); EOSINOPHILS % 0.5 % (0.0-5.0); HEMATOCRIT. 35.2 % (36.0-48.0); HEMOGLOBIN. 11.7 g/dL (12.0-16.0); LYMPHOCYTES % 26.5 % (20.0-50.0); MEAN CORPUSCULAR HEMOGLOBIN 30.4 pg (28.0-32.0); MEAN CORPUSCULAR HGB CONC 33.4 g/dL (31.0-37.0); MONOCYTES % 10.3 % (2.0-8.0); NEUTROPHILS % 62.3 % (40.0-76.0); PLATELET 249 x1000/uL (130-400); RED BLOOD CELL COUNT 3.87 mill/uL (4.2-5.4); RED CELL DISTRIBUTION WIDTH 14.4 % (11.6-14.6); WHITE BLOOD COUNT 7.2 x1000/uL (4.5-11.0)
[2024-08-29 00:17] LABS: CHLORIDE 107 mEq/L (98-107); POTASSIUM 3.7 mEq/L (3.5-5.1); SODIUM 138 mEq/L (136-145)
[2024-08-29 00:18] LABS: CARBON DIOXIDE 23 mEq/L (21-32)
[2024-08-29 00:19] LABS: CALCIUM 8.7 mg/dL (8.7-10.4)
[2024-08-29 00:23] LABS: CREATININE 0.9 mg/dL (0.6-1.0); GLUCOSE 129 mg/dL (70-105); UREA NITROGEN BLOOD 11 mg/dL (9-23)
[2024-08-29 00:24] LABS: ETHANOL BLOOD < 10 mg/dL (<10)
[2024-08-29 00:25] LABS: ACETAMINOPHEN < 2 ug/mL (10-30)
[2024-08-29 01:59] LABS: HCG SCREEN NEGATIVE
[2024-08-29 03:22] LABS: CLARITY URINE CLEAR (CLEAR); COLOR URINE YELLOW (YELLOW); GLUCOSE URINE NEGATIVE (NEGATIVE); KETONES URINE TRACE (NEGATIVE); LEUKOCYTE ESTERASE URINE NEGATIVE (NEGATIVE); NITRITE URINE NEGATIVE (NEGATIVE); OCCULT BLOOD URINE 1+ (NEGATIVE); PROTEIN URINE TRACE (NEGATIVE); SPECIFIC GRAVITY URINE 1.019 (1.005-1.030)
[2024-08-29 03:33] LABS: *AMPHETAMINES SCREEN URINE PRESUMPTIVE POSITIVE (NEGATIVE); *BARBITURATES SCREEN URINE NEGATIVE (NEGATIVE); *BENZODIAZEPINES SCREEN URINE PRESUMPTIVE POSITIVE (NEGATIVE)
[2024-08-29 03:34] LABS: *COCAINE SCREEN URINE NEGATIVE (NEGATIVE); CANNABINOID URINE SCREEN NEGATIVE (NEGATIVE); ECSTASY MDMA SCREEN URINE CONF.TEST INDICATED (NEGATIVE); METHADONE URINE SCREEN NEGATIVE (NEGATIVE); OPIATES URINE SCREEN NEGATIVE (NEGATIVE); PHENCYCLIDINE URINE SCREEN NEGATIVE (NEGATIVE)
[2024-08-29 04:12] LABS: BACTERIA URINE NONE SEEN; RBC URINE 0-2 /hpf (0-2); SQUAMOUS EPITHELIAL CELL URINE RARE /lpf (RARE/1+); WBC URINE NONE SEEN /hpf (0-2)
[2024-08-29 10:27] VITALS: BP 128/84; PULSE 70; RESP 18; TEMP 36.8; O2SAT 98
== END 2024-08-29 11:21 | disposition home or self-care (01) ==
LOC: ER 21:47
DX: Z00.8 Encounter for other general examination (principal); F19.10 Other psychoactive substance abuse, uncomplicated; F20.9 Schizophrenia, unspecified; Z20.822 Contact with and (suspected) exposure to COVID-19; Z79.899 Other long term (current) drug therapy
CPT/HCPCS: 80048; 81025; 80307; 80329; 80320; 84703; 85025; 36415; 93005; 99285; 80305; 81003; 87426; Z7610; G0480

== ENCOUNTER 2024-08-30 20:20 | Emergency (ER) | payer OTHER ==
[~2024-08-30] VITALS: Ht 165.1 cm; Wt 60.0 kg
[2024-08-30 20:22] VITALS: O2SAT 100
[2024-08-30] MEDS: OLANZAPINE 10 MG/VIAL IM ONE (21:39)
[2024-08-31 00:38] VITALS: BP 131/75; PULSE 100; RESP 16; TEMP 37.1; O2SAT 99
[2024-08-31] MEDS: LORAZEPAM 0.5MG TABLET PO ONE (00:40)
[2024-08-31] MEDS ORDERED: OLAN10TA72 MT (04:12)
== END 2024-08-31 00:41 | disposition home or self-care (01) ==
LOC: ER 20:20
DX: F15.10 Other stimulant abuse, uncomplicated (principal); Z79.899 Other long term (current) drug therapy
CPT/HCPCS: 99283; 96372; J3490

== ENCOUNTER 2024-08-31 03:17 | Emergency (ER) | payer OTHER ==
[~2024-08-31] VITALS: Ht 165.1 cm; Wt 84.0 kg
[2024-08-31 03:32] VITALS: BP 138/73; PULSE 80; RESP 18; TEMP 36.7; O2SAT 98
[2024-08-31] MEDS ORDERED: OLAN10TA72 MT (04:12)
== END 2024-08-31 05:11 | disposition home or self-care (01) ==
LOC: ER 03:17
DX: F31.9 Bipolar disorder, unspecified (principal); F20.9 Schizophrenia, unspecified; F15.90 Other stimulant use, unspecified, uncomplicated; Z76.0 Encounter for issue of repeat prescription
CPT/HCPCS: 99283

== ENCOUNTER 2024-08-31 20:50 | Emergency (ER) | payer OTHER ==
[~2024-08-31] VITALS: Ht 165.1 cm; Wt 73.0 kg
[2024-08-31 20:53] VITALS: O2SAT 99
[2024-08-31] MEDS: LORAZEPAM 0.5MG TABLET PO ONE (21:37)
[2024-09-01 01:49] VITALS: BP 103/62; PULSE 110; RESP 25; TEMP 37.2; O2SAT 99
== END 2024-09-01 01:58 | disposition home or self-care (01) ==
LOC: ER 20:50
DX: T43.621A Poisoning by amphetamines, accidental (unintentional), initial encounter (principal); F41.9 Anxiety disorder, unspecified; F31.9 Bipolar disorder, unspecified; F20.9 Schizophrenia, unspecified; F15.90 Other stimulant use, unspecified, uncomplicated; Z79.899 Other long term (current) drug therapy; Y92.89 Other specified places as the place of occurrence of the external cause
CPT/HCPCS: 99283

== ENCOUNTER 2024-09-01 03:49 | Emergency (ER) | payer OTHER ==
[2024-09-01 03:51] VITALS: PULSE 128; O2SAT 100
== END 2024-09-01 05:20 | disposition left against medical advice (07) ==
LOC: ER 03:49
DX: R45.851 Suicidal ideations (principal); Z53.21 Procedure and treatment not carried out due to patient leaving prior to being seen by health care provider

== ENCOUNTER 2024-11-08 20:49 | Emergency (ER) | payer OTHER ==
[~2024-11-08] VITALS: Ht 167.6 cm; Wt 84.0 kg
[2024-11-08 20:54] VITALS: O2SAT 100
[2024-11-08] MEDS: OLANZAPINE 5MG TABLET ODT PO ONE (21:30)
[2024-11-08 21:52] LABS: BASOPHILS % 0.6 % (0.0-2.0); EOSINOPHILS % 0.9 % (0.0-5.0); HEMATOCRIT. 36.9 % (36.0-48.0); HEMOGLOBIN. 12.6 g/dL (12.0-16.0); LYMPHOCYTES % 23.5 % (20.0-50.0); MEAN PLATELET VOLUME 8.6 fl (7.4-10.4); MONOCYTES % 8.6 % (2.0-8.0); NEUTROPHILS % 66.4 % (40.0-76.0); PLATELET 237 x1000/uL (130-400); RED BLOOD CELL COUNT 4.03 mill/uL (4.2-5.4); RED CELL DISTRIBUTION WIDTH 13.9 % (11.6-14.6)
[2024-11-08 22:07] LABS: *AMPHETAMINES SCREEN URINE PRESUMPTIVE POSITIVE (NEGATIVE); *BARBITURATES SCREEN URINE NEGATIVE (NEGATIVE); *BENZODIAZEPINES SCREEN URINE NEGATIVE (NEGATIVE); *COCAINE SCREEN URINE NEGATIVE (NEGATIVE)
[2024-11-08 22:08] LABS: CANNABINOID URINE SCREEN NEGATIVE (NEGATIVE); ECSTASY MDMA SCREEN URINE CONF.TEST INDICATED (NEGATIVE); METHADONE URINE SCREEN NEGATIVE (NEGATIVE); OPIATES URINE SCREEN NEGATIVE (NEGATIVE); PHENCYCLIDINE URINE SCREEN NEGATIVE (NEGATIVE)
[2024-11-08 22:08] LABS: CREATININE 1.1 mg/dL (0.6-1.0); UREA NITROGEN BLOOD 13 mg/dL (9-23)
[2024-11-08 22:09] LABS: ETHANOL BLOOD < 10 mg/dL (<10)
[2024-11-08 22:10] LABS: ASPARTATE AMINOTRANSFERASE 18 IU/L (<34)
[2024-11-08 22:11] LABS: BILIRUBIN DIRECT 0.1 mg/dL (<=3.0); BILIRUBIN TOTAL 0.5 mg/dL (0.1-1.0); PROTEIN TOTAL 7.6 g/dL (6.0-8.3)
[2024-11-08 22:22] LABS: HCG SCREEN NEGATIVE
[2024-11-09 11:00] VITALS: BP 118/72; PULSE 77; RESP 18; TEMP 36.8; O2SAT 100
== END 2024-11-09 13:20 | disposition home or self-care (01) ==
LOC: ER 20:49
DX: R45.851 Suicidal ideations (principal); F15.90 Other stimulant use, unspecified, uncomplicated; F17.200 Nicotine dependence, unspecified, uncomplicated; F20.9 Schizophrenia, unspecified; Z20.822 Contact with and (suspected) exposure to COVID-19; Z79.899 Other long term (current) drug therapy
CPT/HCPCS: 80076; 80305; 80048; 80307; 80329; 80320; 84703; 85025; 36415; 93005; 99285; 87426; Z7610 ×2; A4606; G0480

== ENCOUNTER 2025-01-02 14:27 | Emergency (ER) | payer OTHER ==
[~2025-01-02] VITALS: Ht 172.7 cm; Wt 80.0 kg
[2025-01-02] MEDS ORDERED: MIDAZOLAM HCL 5 MG/ML VIAL IM ONE (14:45)
[2025-01-02 15:01] VITALS: O2SAT 98
[2025-01-02] MEDS: OLANZAPINE 10 MG/VIAL IM ONE (15:01)
[2025-01-02] MEDS: MIDAZOLAM HCL 2 MG/2 ML VIAL IM SCH (15:01)
[2025-01-02] MEDS: DIPHENHYDRAMINE 50MG/ML VIAL IM ONE (15:01)
[2025-01-02 15:19] LABS: BASOPHILS % 0.7 % (0.0-2.0); EOSINOPHILS % 0.8 % (0.0-5.0); HEMATOCRIT. 35.5 % (36.0-48.0); HEMOGLOBIN. 12.1 g/dL (12.0-16.0); LYMPHOCYTES % 19.7 % (20.0-50.0); MEAN PLATELET VOLUME 8.9 fl (7.4-10.4); MONOCYTES % 7.1 % (2.0-8.0); NEUTROPHILS % 71.7 % (40.0-76.0); PLATELET 265 x1000/uL (130-400); RED BLOOD CELL COUNT 3.88 mill/uL (4.2-5.4); RED CELL DISTRIBUTION WIDTH 13.8 % (11.6-14.6)
[2025-01-02 15:32] LABS: CREATININE 1.0 mg/dL (0.6-1.0); UREA NITROGEN BLOOD 11 mg/dL (9-23)
[2025-01-02 15:33] LABS: ETHANOL BLOOD < 10 mg/dL (<10)
[2025-01-02 15:36] LABS: HCG SCREEN NEGATIVE
[2025-01-02 16:50] LABS: CLARITY URINE CLOUDY (CLEAR); COLOR URINE DARK YELLOW (YELLOW); GLUCOSE URINE NEGATIVE (NEGATIVE); KETONES URINE 1+ (NEGATIVE); LEUKOCYTE ESTERASE URINE 1+ (NEGATIVE); NITRITE URINE NEGATIVE (NEGATIVE); OCCULT BLOOD URINE NEGATIVE (NEGATIVE); PH URINE 5.0 (4.5-8.0); PROTEIN URINE TRACE (NEGATIVE); SPECIFIC GRAVITY URINE 1.032 (1.005-1.030); UROBILINOGEN URINE 1.0 E.U./dL (0.2-1.0)
[2025-01-02 16:51] LABS: *AMPHETAMINES SCREEN URINE PRESUMPTIVE POSITIVE (NEGATIVE); *BARBITURATES SCREEN URINE NEGATIVE (NEGATIVE); *BENZODIAZEPINES SCREEN URINE PRESUMPTIVE POSITIVE (NEGATIVE); *COCAINE SCREEN URINE NEGATIVE (NEGATIVE)
[2025-01-02 16:52] LABS: CANNABINOID URINE SCREEN NEGATIVE (NEGATIVE); ECSTASY MDMA SCREEN URINE CONF.TEST INDICATED (NEGATIVE); METHADONE URINE SCREEN NEGATIVE (NEGATIVE); OPIATES URINE SCREEN NEGATIVE (NEGATIVE); PHENCYCLIDINE URINE SCREEN NEGATIVE (NEGATIVE)
[2025-01-02 17:07] LABS: BACTERIA URINE 2+; SQUAMOUS EPITHELIAL CELL URINE 2+ /lpf (RARE/1+)
[2025-01-02 17:08] LABS: RBC URINE 0-2 /hpf (0-2)
[2025-01-02 23:35] LABS: ASPARTATE AMINOTRANSFERASE 30 IU/L (<34); BILIRUBIN DIRECT 0.1 mg/dL (<=3.0); BILIRUBIN TOTAL 0.4 mg/dL (0.1-1.0); PROTEIN TOTAL 7.7 g/dL (6.0-8.3)
[2025-01-03 10:14] VITALS: BP 107/70; PULSE 70; RESP 16; TEMP 37.3; O2SAT 100
[2025-01-03] MEDS ORDERED: OLANZAPINE 5MG TABLET ODT PO SCH (21:00)
== END 2025-01-03 19:41 | disposition short-term general hospital (02) ==
LOC: ER 14:27
DX: R45.1 Restlessness and agitation (principal); F25.9 Schizoaffective disorder, unspecified; F31.9 Bipolar disorder, unspecified; Z59.00 Homelessness unspecified; Z78.1 Physical restraint status; Z79.899 Other long term (current) drug therapy; Z20.822 Contact with and (suspected) exposure to COVID-19
CPT/HCPCS: 80076; 80305; 80048; 81003; 80307; 80329; 80320; 84703; 85025; 36415; 96372; 99291; 87426; J3490; J1200; J2250; Z7610 ×5; A4606; G0480

== ENCOUNTER 2025-01-13 15:42 | Emergency (ER) | payer OTHER ==
[~2025-01-13] VITALS: Ht 167.6 cm; Wt 71.0 kg
[2025-01-13 15:44] VITALS: O2SAT 96
[2025-01-13] MEDS: LORAZEPAM 2MG/ML UD SYRINGE IM NR (16:18)
[2025-01-13] MEDS: HALOPERIDOL LACTATE 5MG/ML VIAL IM ONE (16:18)
[2025-01-13 17:16] LABS: BASOPHILS % 0.2 % (0.0-2.0); EOSINOPHILS % 0.1 % (0.0-5.0); HEMATOCRIT. 37.5 % (36.0-48.0); HEMOGLOBIN. 12.5 g/dL (12.0-16.0); LYMPHOCYTES % 15.5 % (20.0-50.0); MEAN PLATELET VOLUME 8.8 fl (7.4-10.4); MONOCYTES % 9.1 % (2.0-8.0); NEUTROPHILS % 75.1 % (40.0-76.0); PLATELET 229 x1000/uL (130-400); RED BLOOD CELL COUNT 4.08 mill/uL (4.2-5.4); RED CELL DISTRIBUTION WIDTH 13.6 % (11.6-14.6)
[2025-01-13 17:34] LABS: CREATININE 1.3 mg/dL (0.6-1.0); UREA NITROGEN BLOOD 14 mg/dL (9-23)
[2025-01-13 17:41] LABS: HCG SCREEN NEGATIVE
[2025-01-13] MEDS: POTASSIUM CHLORIDE 20MEQ TABLET SR PO NR (19:00)
[2025-01-13 19:53] LABS: CLARITY URINE CLOUDY (CLEAR); GLUCOSE URINE NEGATIVE (NEGATIVE); KETONES URINE TRACE (NEGATIVE); LEUKOCYTE ESTERASE URINE TRACE (NEGATIVE); NITRITE URINE NEGATIVE (NEGATIVE); OCCULT BLOOD URINE NEGATIVE (NEGATIVE); PH URINE 5.0 (4.5-8.0); PROTEIN URINE 2+ (NEGATIVE); SPECIFIC GRAVITY URINE 1.033 (1.005-1.030); UROBILINOGEN URINE 1.0 E.U./dL (0.2-1.0)
[2025-01-13 19:56] LABS: *AMPHETAMINES SCREEN URINE PRESUMPTIVE POSITIVE (NEGATIVE); *BARBITURATES SCREEN URINE NEGATIVE (NEGATIVE); *BENZODIAZEPINES SCREEN URINE NEGATIVE (NEGATIVE); *COCAINE SCREEN URINE NEGATIVE (NEGATIVE); CANNABINOID URINE SCREEN NEGATIVE (NEGATIVE); ECSTASY MDMA SCREEN URINE CONF.TEST INDICATED (NEGATIVE); METHADONE URINE SCREEN NEGATIVE (NEGATIVE); OPIATES URINE SCREEN NEGATIVE (NEGATIVE); PHENCYCLIDINE URINE SCREEN NEGATIVE (NEGATIVE)
[2025-01-13 20:06] LABS: COLOR URINE YELLOW (YELLOW)
[2025-01-13 20:07] LABS: RBC URINE NONE SEEN /hpf (0-2); WBC URINE 0-2 /hpf (0-2)
[2025-01-13 20:08] LABS: BACTERIA URINE 2+; COARSE GRANULAR CASTS URINE 0-5 /lpf; SQUAMOUS EPITHELIAL CELL URINE 1+ /lpf (RARE/1+)
[2025-01-13 20:09] LABS: HYALINE CASTS URINE 0-5 /lpf; MUCUS URINE 1+ /lpf (< = 2+)
[2025-01-13] MEDS: POTASSIUM CHLORIDE 20MEQ/PACKET PO ONE (20:51)
[2025-01-14] MEDS: DIPHENHYDRAMINE 25MG CAPSULE PO ONE (01:32)
[2025-01-14 03:35] VITALS: BP 116/77; PULSE 72; RESP 18; TEMP 36.9; O2SAT 96
== END 2025-01-14 03:35 | disposition home or self-care (01) ==
LOC: ER 15:42
DX: R45.1 Restlessness and agitation (principal); F19.10 Other psychoactive substance abuse, uncomplicated; Z79.899 Other long term (current) drug therapy
CPT/HCPCS: 80305; 80048; 81003; 80307; 80329; 80320; 82550; 84703; 85025; 36415; 93005; 96372; 99285; 87426; J1630; J2060; Z7610 ×2; Q0163; G0480

== ENCOUNTER 2025-02-03 05:29 | Emergency (ER) | payer OTHER ==
[~2025-02-03] VITALS: Ht 160 cm; Wt 82.0 kg
[2025-02-03 05:39] VITALS: TEMP 36.6
[2025-02-03] MEDS: DIPHENHYDRAMINE 50MG/ML VIAL IM ONE (05:48)
[2025-02-03] MEDS: HALOPERIDOL LACTATE 5MG/ML VIAL IM ONE (05:49)
[2025-02-03] MEDS: LORAZEPAM 2MG/ML UD SYRINGE IM SCH (05:49)
[2025-02-03 06:15] VITALS: TEMP 97.6; O2SAT 95
[2025-02-03 06:31] LABS: BASOPHILS % 0.5 % (0.0-2.0); EOSINOPHILS % 0.2 % (0.0-5.0); HEMATOCRIT. 36.0 % (36.0-48.0); HEMOGLOBIN. 12.1 g/dL (12.0-16.0); LYMPHOCYTES % 19.4 % (20.0-50.0); MEAN PLATELET VOLUME 8.7 fl (7.4-10.4); MONOCYTES % 12.2 % (2.0-8.0); NEUTROPHILS % 67.7 % (40.0-76.0); PLATELET 309 x1000/uL (130-400); RED BLOOD CELL COUNT 3.90 mill/uL (4.2-5.4); RED CELL DISTRIBUTION WIDTH 14.2 % (11.6-14.6)
[2025-02-03 06:43] LABS: CLARITY URINE TURBID (CLEAR); COLOR URINE DARK YELLOW (YELLOW); GLUCOSE URINE NEGATIVE (NEGATIVE); KETONES URINE 1+ (NEGATIVE); LEUKOCYTE ESTERASE URINE NEGATIVE (NEGATIVE); NITRITE URINE NEGATIVE (NEGATIVE); OCCULT BLOOD URINE NEGATIVE (NEGATIVE); PH URINE 5.5 (4.5-8.0); PROTEIN URINE 1+ (NEGATIVE); SPECIFIC GRAVITY URINE 1.029 (1.005-1.030); UROBILINOGEN URINE 1.0 E.U./dL (0.2-1.0)
[2025-02-03 06:51] LABS: CREATININE 1.3 mg/dL (0.6-1.0)
[2025-02-03 06:52] LABS: UREA NITROGEN BLOOD 18 mg/dL (9-23)
[2025-02-03 06:55] LABS: HCG SCREEN NEGATIVE
[2025-02-03 07:00] LABS: SQUAMOUS EPITHELIAL CELL URINE 2+ /lpf (RARE/1+)
[2025-02-03 07:01] LABS: *AMPHETAMINES SCREEN URINE PRESUMPTIVE POSITIVE (NEGATIVE); *BARBITURATES SCREEN URINE NEGATIVE (NEGATIVE); *BENZODIAZEPINES SCREEN URINE NEGATIVE (NEGATIVE); *COCAINE SCREEN URINE NEGATIVE (NEGATIVE); AMORPHOUS SEDIMENT URINE 2+ /lpf; BACTERIA URINE TRACE; CANNABINOID URINE SCREEN NEGATIVE (NEGATIVE); ECSTASY MDMA SCREEN URINE CONF.TEST INDICATED (NEGATIVE); METHADONE URINE SCREEN NEGATIVE (NEGATIVE); OPIATES URINE SCREEN NEGATIVE (NEGATIVE); PHENCYCLIDINE URINE SCREEN NEGATIVE (NEGATIVE); RBC URINE NONE SEEN /hpf (0-2); WBC URINE 0-2 /hpf (0-2)
[2025-02-03] MEDS: POTASSIUM CHLORIDE 20MEQ TABLET SR PO ONE (13:45)
[2025-02-03 16:00] VITALS: BP 98/50; PULSE 83; RESP 17; O2SAT 100
== END 2025-02-03 18:04 | disposition still patient (30) ==
LOC: ER 05:29
DX: F15.10 Other stimulant abuse, uncomplicated (principal); E87.6 Hypokalemia; F25.9 Schizoaffective disorder, unspecified; Z20.822 Contact with and (suspected) exposure to COVID-19; Z79.899 Other long term (current) drug therapy
CPT/HCPCS: 80305; 80048; 81003; 80307; 80329; 80320; 84703; 85025; 36415; 96372; 99291; 87426; J1200; J1630; J2060; Z7610 ×5; A4606; G0480

== ENCOUNTER 2025-02-22 13:10 | Emergency (ER) | payer OTHER ==
[~2025-02-22] VITALS: Ht 165.1 cm; Wt 80.0 kg
[2025-02-22 13:15] VITALS: O2SAT 99
[2025-02-22] MEDS: HALOPERIDOL LACTATE 5MG/ML VIAL IM ONE (13:42)
[2025-02-22] MEDS: LORAZEPAM 2MG/ML UD SYRINGE IM SCH (13:42)
[2025-02-22] MEDS: DIPHENHYDRAMINE 50MG/ML VIAL IM ONE (14:11)
[2025-02-22 15:10] LABS: BASOPHILS % 0.4 % (0.0-2.0); EOSINOPHILS % 0.9 % (0.0-5.0); HEMATOCRIT. 33.9 % (36.0-48.0); HEMOGLOBIN. 11.5 g/dL (12.0-16.0); LYMPHOCYTES % 19.5 % (20.0-50.0); MEAN PLATELET VOLUME 8.7 fl (7.4-10.4); MONOCYTES % 7.3 % (2.0-8.0); NEUTROPHILS % 71.9 % (40.0-76.0); PLATELET 205 x1000/uL (130-400); RED BLOOD CELL COUNT 3.68 mill/uL (4.2-5.4); RED CELL DISTRIBUTION WIDTH 13.2 % (11.6-14.6)
[2025-02-22 15:20] LABS: CREATININE 1.0 mg/dL (0.6-1.0); UREA NITROGEN BLOOD 14 mg/dL (9-23)
[2025-02-22 15:29] LABS: HCG SCREEN NEGATIVE
[2025-02-22] MEDS: POTASSIUM CHLORIDE 20MEQ TABLET SR PO ONE (20:38)
[2025-02-22 23:20] LABS: CLARITY URINE CLEAR (CLEAR); COLOR URINE DARK YELLOW (YELLOW); GLUCOSE URINE NEGATIVE (NEGATIVE); KETONES URINE TRACE (NEGATIVE); LEUKOCYTE ESTERASE URINE NEGATIVE (NEGATIVE); NITRITE URINE NEGATIVE (NEGATIVE); OCCULT BLOOD URINE 2+ (NEGATIVE); PH URINE 5.5 (4.5-8.0); PROTEIN URINE TRACE (NEGATIVE); SPECIFIC GRAVITY URINE 1.037 (1.005-1.030); UROBILINOGEN URINE 1.0 E.U./dL (0.2-1.0)
[2025-02-22 23:47] LABS: BACTERIA URINE NONE SEEN; SQUAMOUS EPITHELIAL CELL URINE 2+ /lpf (RARE/1+); WBC URINE 0-2 /hpf (0-2)
[2025-02-22 23:52] LABS: *AMPHETAMINES SCREEN URINE PRESUMPTIVE POSITIVE (NEGATIVE); *BARBITURATES SCREEN URINE NEGATIVE (NEGATIVE); *BENZODIAZEPINES SCREEN URINE NEGATIVE (NEGATIVE); *COCAINE SCREEN URINE NEGATIVE (NEGATIVE); CANNABINOID URINE SCREEN NEGATIVE (NEGATIVE); METHADONE URINE SCREEN NEGATIVE (NEGATIVE); OPIATES URINE SCREEN NEGATIVE (NEGATIVE); PHENCYCLIDINE URINE SCREEN NEGATIVE (NEGATIVE)
[2025-02-22 23:53] LABS: ECSTASY MDMA SCREEN URINE CONF.TEST INDICATED (NEGATIVE)
[2025-02-23 11:20] VITALS: BP 114/63; PULSE 62; RESP 16; TEMP 36.7; O2SAT 99
== END 2025-02-23 12:47 | disposition home or self-care (01) ==
LOC: ER 13:10
DX: F20.9 Schizophrenia, unspecified (principal); F15.10 Other stimulant abuse, uncomplicated; Z79.899 Other long term (current) drug therapy; Z20.822 Contact with and (suspected) exposure to COVID-19
CPT/HCPCS: 80305; 80048; 81003; 80307; 80329; 80320; 84703; 85025; 36415; 96372; 99285; 87426; J1200; J1630; J2060; G0480

== ENCOUNTER 2025-03-04 23:08 | Emergency (ER) | payer OTHER ==
[~2025-03-04] VITALS: Ht 170.2 cm; Wt 84.0 kg
[2025-03-04 23:10] VITALS: O2SAT 96
[2025-03-04] MEDS: OLANZAPINE 10 MG/VIAL IM ONE (23:47)
[2025-03-04] MEDS: LORAZEPAM 2MG/ML UD SYRINGE IM NR (23:48)
[2025-03-05 00:22] LABS: BASOPHILS % 0.4 % (0.0-2.0); EOSINOPHILS % 0.5 % (0.0-5.0); HEMATOCRIT. 34.4 % (36.0-48.0); HEMOGLOBIN. 11.3 g/dL (12.0-16.0); LYMPHOCYTES % 27.8 % (20.0-50.0); MEAN PLATELET VOLUME 8.6 fl (7.4-10.4); MONOCYTES % 7.2 % (2.0-8.0); NEUTROPHILS % 64.1 % (40.0-76.0); PLATELET 214 x1000/uL (130-400); RED BLOOD CELL COUNT 3.64 mill/uL (4.2-5.4); RED CELL DISTRIBUTION WIDTH 13.4 % (11.6-14.6)
[2025-03-05 00:35] LABS: CREATININE 0.7 mg/dL (0.6-1.0); ETHANOL BLOOD < 10 mg/dL (<10); UREA NITROGEN BLOOD 6 mg/dL (9-23)
[2025-03-05 07:24] VITALS: BP 128/93; PULSE 85; RESP 15; O2SAT 100
[2025-03-05 13:16] LABS: *AMPHETAMINES SCREEN URINE PRESUMPTIVE POSITIVE (NEGATIVE); *BARBITURATES SCREEN URINE NEGATIVE (NEGATIVE); *BENZODIAZEPINES SCREEN URINE NEGATIVE (NEGATIVE); *COCAINE SCREEN URINE NEGATIVE (NEGATIVE); CANNABINOID URINE SCREEN NEGATIVE (NEGATIVE); ECSTASY MDMA SCREEN URINE CONF.TEST INDICATED (NEGATIVE); METHADONE URINE SCREEN NEGATIVE (NEGATIVE); OPIATES URINE SCREEN NEGATIVE (NEGATIVE); PHENCYCLIDINE URINE SCREEN NEGATIVE (NEGATIVE)
[2025-03-05 14:45] LABS: HCG SCREEN NEGATIVE
== END 2025-03-05 14:49 | disposition home or self-care (01) ==
LOC: ER 23:08
DX: F15.10 Other stimulant abuse, uncomplicated (principal); F16.10 Hallucinogen abuse, uncomplicated; F20.9 Schizophrenia, unspecified; Z20.822 Contact with and (suspected) exposure to COVID-19
CPT/HCPCS: 36415; 93005; 96372; 99285; 80305; 80048; 80320; 84703; 85025; 87426; J3490; J2060; G0480

== ENCOUNTER 2025-03-18 20:18 | Emergency (ER) | payer OTHER ==
[~2025-03-18] VITALS: Ht 162.6 cm; Wt 91.0 kg
[2025-03-18 20:20] VITALS: O2SAT 100
[2025-03-18 21:22] LABS: BASOPHILS % 0.9 % (0.0-2.0); EOSINOPHILS % 1.5 % (0.0-5.0); HEMATOCRIT. 32.5 % (36.0-48.0); HEMOGLOBIN. 10.9 g/dL (12.0-16.0); LYMPHOCYTES % 22.9 % (20.0-50.0); MEAN PLATELET VOLUME 8.1 fl (7.4-10.4); MONOCYTES % 6.4 % (2.0-8.0); NEUTROPHILS % 68.3 % (40.0-76.0); PLATELET 286 x1000/uL (130-400); RED BLOOD CELL COUNT 3.47 mill/uL (4.2-5.4); RED CELL DISTRIBUTION WIDTH 13.9 % (11.6-14.6)
[2025-03-18 21:36] LABS: CREATININE 0.8 mg/dL (0.6-1.0); UREA NITROGEN BLOOD 19 mg/dL (9-23)
[2025-03-18 21:37] LABS: ETHANOL BLOOD < 10 mg/dL (<10)
[2025-03-18 21:38] LABS: ASPARTATE AMINOTRANSFERASE 20 IU/L (<34); BILIRUBIN DIRECT < 0.1 mg/dL (<=3.0)
[2025-03-18 21:39] LABS: BILIRUBIN TOTAL < 0.2 mg/dL (0.1-1.0); PROTEIN TOTAL 6.7 g/dL (6.0-8.3)
[2025-03-18 21:40] LABS: HCG SCREEN NEGATIVE
[2025-03-18 21:49] LABS: *AMPHETAMINES SCREEN URINE NEGATIVE (NEGATIVE); *BARBITURATES SCREEN URINE NEGATIVE (NEGATIVE); *BENZODIAZEPINES SCREEN URINE NEGATIVE (NEGATIVE); *COCAINE SCREEN URINE NEGATIVE (NEGATIVE); CANNABINOID URINE SCREEN NEGATIVE (NEGATIVE); ECSTASY MDMA SCREEN URINE NEGATIVE (NEGATIVE); METHADONE URINE SCREEN NEGATIVE (NEGATIVE); OPIATES URINE SCREEN NEGATIVE (NEGATIVE); PHENCYCLIDINE URINE SCREEN NEGATIVE (NEGATIVE)
[2025-03-18 22:14] LABS: CLARITY URINE CLEAR (CLEAR); COLOR URINE YELLOW (YELLOW); GLUCOSE URINE NEGATIVE (NEGATIVE); KETONES URINE NEGATIVE (NEGATIVE); LEUKOCYTE ESTERASE URINE NEGATIVE (NEGATIVE); NITRITE URINE NEGATIVE (NEGATIVE); OCCULT BLOOD URINE NEGATIVE (NEGATIVE); PH URINE 6.0 (4.5-8.0); PROTEIN URINE NEGATIVE (NEGATIVE); SPECIFIC GRAVITY URINE 1.022 (1.005-1.030); UROBILINOGEN URINE 0.2 E.U./dL (0.2-1.0)
[2025-03-19 04:16] VITALS: BP 109/58; PULSE 82; RESP 18; TEMP 36.8; O2SAT 98
== END 2025-03-19 04:29 ==
LOC: ER 20:18
DX: R44.0 Auditory hallucinations (principal); D64.9 Anemia, unspecified; Z91.148 Patient's other noncompliance with medication regimen for other reason; Z79.899 Other long term (current) drug therapy; Z20.822 Contact with and (suspected) exposure to COVID-19
CPT/HCPCS: 36415; 80048; 80076; 80305; 80307; 80320; 80329; 81003; 83735; 84703; 85025; 87426; 99285; G0480

== ENCOUNTER 2025-04-03 00:39 | Emergency (ER) | payer MEDICAID, OTHER ==
[2025-04-03 00:43] VITALS: O2SAT 100
[2025-04-03] MEDS: DIPHENHYDRAMINE 50MG/ML VIAL IM ONE (01:18)
[2025-04-03] MEDS: LORAZEPAM 2MG/ML UD SYRINGE IM NR (01:18)
[2025-04-03] MEDS: HALOPERIDOL LACTATE 5MG/ML VIAL IM ONE (01:18)
[2025-04-03] MEDS: SODIUM CHLORIDE 0.9% 1,000 ML IV ONE (02:04)
[2025-04-03] MEDS: ONDANSETRON HCL 4MG/2ML INJ IV ONE (02:05)
[2025-04-03 02:38] LABS: UREA NITROGEN BLOOD 17 mg/dL (9-23)
[2025-04-03 02:39] LABS: CREATININE 0.9 mg/dL (0.6-1.0); ETHANOL BLOOD < 10 mg/dL (<10)
[2025-04-03 02:40] LABS: ASPARTATE AMINOTRANSFERASE 35 IU/L (<34); PROTEIN TOTAL 7.5 g/dL (6.0-8.3)
[2025-04-03 02:41] LABS: BILIRUBIN DIRECT 0.1 mg/dL (<=3.0); BILIRUBIN TOTAL 0.4 mg/dL (0.1-1.0)
[2025-04-03 03:35] LABS: BASOPHILS % 0.3 % (0.0-2.0); EOSINOPHILS % 0.1 % (0.0-5.0); HEMATOCRIT. 32.6 % (36.0-48.0); HEMOGLOBIN. 10.7 g/dL (12.0-16.0); LYMPHOCYTES % 14.3 % (20.0-50.0); MEAN PLATELET VOLUME 8.4 fl (7.4-10.4); MONOCYTES % 7.4 % (2.0-8.0); NEUTROPHILS % 77.9 % (40.0-76.0); PLATELET 231 x1000/uL (130-400); RED BLOOD CELL COUNT 3.52 mill/uL (4.2-5.4); RED CELL DISTRIBUTION WIDTH 14.0 % (11.6-14.6)
[2025-04-03 04:44] LABS: HCG SCREEN NEGATIVE
[2025-04-03] MEDS: IOHEXOL-300 100 ML BOTTLE ONE (05:20)
[2025-04-03 05:53] LABS: *AMPHETAMINES SCREEN URINE PRESUMPTIVE POSITIVE (NEGATIVE); *BARBITURATES SCREEN URINE NEGATIVE (NEGATIVE); *BENZODIAZEPINES SCREEN URINE NEGATIVE (NEGATIVE); *COCAINE SCREEN URINE NEGATIVE (NEGATIVE); CANNABINOID URINE SCREEN NEGATIVE (NEGATIVE); ECSTASY MDMA SCREEN URINE CONF.TEST INDICATED (NEGATIVE); METHADONE URINE SCREEN NEGATIVE (NEGATIVE); OPIATES URINE SCREEN NEGATIVE (NEGATIVE); PHENCYCLIDINE URINE SCREEN NEGATIVE (NEGATIVE)
[2025-04-03 15:04] VITALS: BP 106/61; PULSE 83; RESP 16; TEMP 37.1; O2SAT 100
== END 2025-04-03 15:15 | disposition home or self-care (01) ==
LOC: ER 00:39
DX: F20.9 Schizophrenia, unspecified (principal); F15.10 Other stimulant abuse, uncomplicated; Z20.822 Contact with and (suspected) exposure to COVID-19; Z79.899 Other long term (current) drug therapy
CPT/HCPCS: 80076; 80305; 80048; 80307; 80329; 80320; 84703; 85025; 36415; 71045; 74177; 93005; 96361; 96372; 96374; 99285; 87426; Q9967; J1200; J1630; J2060; J2405; J7030; G0480

== ENCOUNTER 2025-04-07 06:31 | Emergency (ER) | payer MEDICAID, OTHER ==
[~2025-04-07] VITALS: Ht 162.6 cm; Wt 98.0 kg
[2025-04-07 06:52] VITALS: O2SAT 100
[2025-04-07 07:29] VITALS: BP 108/64; PULSE 80; RESP 18; TEMP 37; O2SAT 99
== END 2025-04-07 09:36 | disposition left against medical advice (07) ==
LOC: ER 06:49
DX: R19.7 Diarrhea, unspecified (principal); R05.9 Cough, unspecified; F20.9 Schizophrenia, unspecified
CPT/HCPCS: 81025; 99281